=== PATIENT | male | born 2000 ===

== ENCOUNTER 2020-08-07 14:36 | Emergency (ER) | payer BC, SELFPAY ==
[2020-08-07 14:38] VITALS: BP 140/74; PULSE 82; RESP 16; TEMP 36.6; O2SAT 100; BMI 22.8
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
--- NOTE | 2020-08-07 16:27 | PC.NURSE ---
seen by provider. cleared for dc w/o interventions
== END 2020-08-07 16:28 | disposition home or self-care (01) ==
PROVIDERS: Emergency Provider Emergency Medicine
DX: S40.012A Contusion of left shoulder, initial encounter (principal); M25.512 Pain in left shoulder; V43.52XA Car driver injured in collision with other type car in traffic accident, initial encounter; Y93.9 Activity, unspecified; Y92.410 Unspecified street and highway as the place of occurrence of the external cause; Y99.9 Unspecified external cause status; Z79.899 Other long term (current) drug therapy
CPT/HCPCS: 73030; 99283

== ENCOUNTER 2020-11-23 14:14 | Outpatient (REF) | payer BC, SELFPAY | END 2020-11-23 14:15 | disposition home or self-care (01) | LOC: HO.LAB 14:14 | PROVIDERS: Visit Provider Internal Medicine | DX: Z20.822 Contact with and (suspected) exposure to COVID-19 (principal) | CPT/HCPCS: 36415; C9803; U0003; U0005 ==

== ENCOUNTER 2022-08-18 15:51 | Emergency (ER) | payer BC, SELFPAY ==
[2022-08-18 16:47] VITALS: BP 126/67; PULSE 90; RESP 18; TEMP 36.2; O2SAT 99; BMI 23.6
--- NOTE | 2022-08-18 16:47 | ED.EYEPROB ---
HPI - Eye Problem General Chief complaint: General Medical Stated complaint: Swollen Eye Time Seen by Provider: 08/18/22 16:50 Source: patient Mode of arrival: ambulatory Limitations: no limitations History of Present Illness HPI Narrative: 21-year-old male presenting to the ER with complaints of redness/swelling to the right eyelid that started on Monday worse today. Denies any injury to this area thoughts of foreign bodies or any other symptoms complaints or concerns at this time. chief complaint: other (Eyelid swelling) Onset (ago): day(s) (3) Onset description: gradual Duration: constant Location: right eye Eye Symptoms: redness, pain and itching Place: home Mechanism: none Severity: mild If Pain, Quality: aching Associated symptoms: none Treatments Prior to Arrival: none Related Data Patient tetanus UTD: Yes Previous Rx's Medication Instructions Recorded cyclobenzaprine 10 mg tablet 10 mg PO TID PRN muscle spasm #10 08/07/20 tabs ibuprofen 600 mg tablet 600 mg PO Q8H PRN pain #20 tabs 08/07/20 lidocaine 5 % topical patch 1 patch topical DAILY #15 ea 08/07/20 (Lidoderm) doxycycline monohydrate 100 mg 100 mg PO BID 10 days #20 caps 08/18/22 capsule erythromycin 5 mg/gram (0.5 %) eye 0.5 inch ophthalmic (eye) QID 08/18/22 ointment Blepharitis 7 days #3.5 grams Allergies Allergy/AdvReac Type Severity Reaction Status Date / Time No Known Allergies Allergy Unverified 05/21/20 17:36 Review of Systems Review of Systems: Constitutional : No fevers, no chills, No changes in activity, No lethargy, No recent prior head injury, No agitation, No increased fussiness ENT/Mouth : No Ear Pain, No Nasal discharge/drainage Eyes: No Vision changes/blurry/decreased vision, No Eye Pain, No Swelling, + eyelid Redness, No Foreign Body, No Photophobia, no discharge, no drainage, + itching, + eyelid edema, no contact lens uses, no recent welding, no bleeding Cardiovascular : No Chest Pain, No SOB Respiratory : No Cough Gastrointestinal : No Nausea, No Vomiting, No abdominal Pain Genitourinary : No Dysuria, No Urinary Frequency, No Urinary Incontinence, No Urgency, No Flank Pain Musculoskeletal : No joint pain, No neck stiffness, No back pain/injury Skin : No lacerations Neuro : No unsteady gait, No Paresthesias, No Loss of Consciousness, No altered mental status, No dizziness, No Headache Denies past medical history of HIV, recent trauma, coagulopathy, recent spinal/ epidural procedure, new medication, URI symptoms, close contacts with similar symptoms, tick bite, or known CO2 exposure. Yes all other systems are reviewed and are negative PMFSH Past Medical History Attestation statement: The following information was validated with the patient. Source: old records reviewed and nursing notes reviewed Medical History No known health problems Physical Exam Vital Signs: Vital Signs: Last Vital Signs Temp 97.1 F 08/18/22 16:47 Pulse 90 08/18/22 16:47 Resp 18 08/18/22 16:47 BP 126/67 08/18/22 16:47 Pulse Ox 99 08/18/22 16:47 O2 Del Method 08/18/22 16:47 BMI result Body Mass Index 23.6 Vital signs reviewed. Blood pressure normal. Pulse normal. Respiration normal. Oxygen normal. Temperature normal. Appearance: Alert. Oriented X3. No acute distress. Head: Normal external exam. Normocephalic. Atraumatic. Eyes: PERRLA. EOMI. Conjunctiva and sclera normal. Left eyelid within normal limits. Right eyelid appears to have a possible stye although does not have a head and is not ready to be drained at this time. Consistent with blepharitis. Not consistent with orbital cellulitis. ENT: EAC normal. TM's Normal. Pharynx normal. Uvula midline. Moist mucous membranes. No lesions/ulcerations or masses noted on the tongue. Normal voice. No trismus noted. No drooling noted. No muffled voice noted. Neck: Normal inspection. Neck supple. FROM. No adenopathy. Thyroid Normal. No meningeal signs. CVS: Normal heart rate and rhythm. Heart sound normal. Pulses normal throughout. No murmurs/rales/gallops. Respiratory: No respiratory distress. Painless inspiration. Breath sounds normal. No wheezes/rales/rhonchi noted. Chest nontender. No accessory muscle usage noted or decreased air movement noted. Abdomen: Soft and nontender. Back: Full range of motion noted. Nontender. Skin: Skin warm and dry. Normal skin color. Normal skin turgor. No rashes/lesions/lacerations noted. Extremities: Extremities exhibit normal range of motion and nontender. Neuro: Oriented X 3. No motor deficit. No sensory deficit. Reflexes normal. Normal steady gait. No focal neuro deficits noted. CN's II-XII intact bilaterally? Vascular: + radial pulses. Normal cap refill. No cyanosis noted to upper extremity nails Course Course Course Narrative: Will DC home with antibiotics and instructions to return if any new or worsening symptoms follow up with primary care provider. Patient understands agrees with this plan. Discharge Plan Discharge Clinical Impression: Hordeolum externum (stye), Blepharitis Patient Disposition: Home, Self-Care Instructions: Stdiane (ED), Blepharitis (ED) Prescriptions: New erythromycin 5 mg/gram (0.5 %) ointment 0.5 inch ophthalmic (eye) QID 7 Days Qty: 3.5 0RF doxycycline monohydrate 100 mg capsule 100 mg PO BID 10 Days Qty: 20 0RF No Action cyclobenzaprine 10 mg tablet 10 mg PO TID PRN (Reason: muscle spasm) Qty: 10 0RF lidocaine [Lidoderm] 5 % adhesive patch,medicated 1 patch topical DAILY Qty: 15 0RF Rx Instructions: leave on most painful area for up to 12 hrs ibuprofen 600 mg tablet 600 mg PO Q8H PRN (Reason: pain) Qty: 20 0RF Referrals: Physician,Unknown J [Primary Care Provider] - (your pcp as needed ) Stand Alone Forms: Work/School Release Interventions: ED Discharge Assessment Last Done: 08/18/22 16:53
== END 2022-08-18 16:56 | disposition home or self-care (01) ==
LOC: HO.ED 16:55
PROVIDERS: Emergency Provider Internal Medicine
DX: H00.013 Hordeolum externum right eye, unspecified eyelid (principal); H01.006 Unspecified blepharitis left eye, unspecified eyelid; Z79.899 Other long term (current) drug therapy
CPT/HCPCS: 99282; 99283

== ENCOUNTER 2024-02-05 12:50 | Outpatient (AMB) | payer BC, SELFPAY ==
--- NOTE | 2024-02-05 13:00 | A.OFFPC_ITS ---
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 Pt has not have a PCP in over 10 years. 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 Patient has not seen a PCP in over 10 years. In general he is a healthy young man. He reports having herpes simplex infection several months ago and was treated. He would like to do STD screening again. 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 1. Little interest or pleasure in doing things: not at all 2. Feeling down, depressed, or hopeless: not at all 3. Trouble falling or staying asleep, or sleeping too much: not at all 4. Feeling tired or having little energy: not at all 5. Poor appetite or overeating: not at all 6. Feeling bad about yourself - or that you are a failure or have let yourself or your family down: not at all 7. Trouble concentrating on things, such as reading the newspaper or watching television: not at all 8. Moving or speaking so slowly that other people could have noticed. Or the opposite - being so fidgety or restless that you have been moving around a lot more than usual: not at all 9. Thoughts that you would be better off or of hurting yourself in some way: not at all Total score: 0 Depression Screening Interpretation: Negative Depression Screening Done: Yes 35320 - PHQ-9 Billing: Yes Source: Developed by Drs. Ángel Eisenberg, Shira Smith, Jeremiah Diamond and colleagues, with an educational kiesha from [employer]. Thrive Questionnaire Date Thrive assessed: 02/05/24 I am a: Patient What is your living situation today?: I have a steady place to live Within the past 12 months, did the food you bought not last and you didn't have the money to get more?: Never true Within the past 12 months, did you worry whether your food would run out before you got money to buy more?: Never true Do you have trouble paying for medicines?: No Do you have trouble getting transportation to medical appointments?: No Do you have trouble paying your heating and electricity bill?: No Do you have trouble taking care of your child, family member or friend?: No Do you have trouble with day-to-day activities such as bathing, preparing meals, shopping, managing finances, etc.?: No Are you currently unemployed and looking for a job?: No Are you interested in more education?: No Please select the resources that you would like help with: None Currently or been in a relationship where the following occur: no concerns reported THRIVE Score: 0 AUDIT C Alcohol Use Questionnaire (AUDIT-C) 1. How often do you have a drink containing alcohol?: Monthly or less 2. How many drinks containing alcohol do you have on a typical day when you are drinking?: 1 or 2 3. How often do you have six or more drinks on one occasion?: Never Total Score: 1 EARLE-7 AMB Questionnaire EARLE-7 Date EARLE - 7 assessed: 02/05/24 Feeling nervous, anxious, or on edge: 0 = Not at all Not being able to stop or control worryin = Not at all Worrying too much about different things: 0 = Not at all Trouble relaxin = Not at all Being so restless that it is hard to sit still: 0 = Not at all Becoming easily annoyed or irritable: 0 = Not at all Feeling afraid as if something awful might happen: 0 = Not at all Total EARLE-7 score (0-4 normal; 5-9 mild; 10-14 moderate; 15-21 severe): 0 Source: Developed by Drs. Ángel Eisenberg, Shira Smith, Jeremiah Diamond and colleagues, with an educational kiesha from [employer]. EARLE-7 Assessment Billing EARLE-7 Assessment Tool: EARLE-7 Assessment 05395 Review of Systems Const Denies headache(s) Eyes Denies loss of vision ENT Denies vertigo, Denies dizziness, Denies headache(s) and Denies sore throat Card Denies chest pain, Denies leg edema and Denies lightheadedness Resp Denies cough, Denies hemoptysis and Denies wheezing GI Denies abdominal pain, Denies melena, Denies constipation, Denies diarrhea and Denies vomiting Denies dysuria, Denies urinary frequency and Denies urinary urgency Musc Denies arthralgias, Denies joint swelling, Denies numbness and Denies tingling Neuro Denies Abnormal speech present, Denies behavioral changes, Denies vertigo, Denies dizziness, Denies headache(s), Denies loss of vision, Denies memory loss, Denies numbness and Denies tingling Psych Denies anxiety, Denies behavioral changes, Denies depression, Denies memory loss and Denies panic attacks Kali/Lymph Denies easy bleeding and Denies easy bruising Aller/Immun Denies wheezing Physical exam (Primary Care) Vital Signs: Last Vital Signs Pulse 92 02/05/24 13:01 BP 138/72 02/05/24 13:01 Pulse Ox 99 02/05/24 13:01 Oxygen Delivery Method Room Air 02/05/24 13:01 BMI result Body Mass Index 22.1 PHQ-9: PHQ-9 Score PHQ-9: Total score 0 02/05/24 13:08 Depression Screening Interpretation: Negative Thrive Assessment: Date of Thrive Assessment Date Thrive assessed 02/05/24 02/05/24 13:08 Currently or been in a relationship where the following occur: no concerns reported Const General: healthy appearing, no acute distress, alert and awake Nutritional Appearance: well nourished Orientation/consciousness: oriented to person, oriented to place and oriented to time HENMT Ears: TM's normal bilaterally General nose exam: Normal nasal mucous membranes and turbinates present Eyes Conjunctivae: conjunctivae normal Sclerae: sclerae normal Pupils: Equal, round and reactive pupils present Neck Neck: Yes no lymphadenopathy and Yes no JVD Thyroid: Thyroid normal Carotids: no bruits Resp Effort & Inspection: normal respiratory effort and not tachypneic Auscultation: no crackles, no rales, no rhonchi and no wheezes Cardio Rate: regular rate Rhythm: regular rhythm Heart sounds: no murmurs and normal S1 and S2 GI Palpation (GI): Soft to palpation, nontender, no hepatomegaly and no splenomegaly Auscultation: normal bowel sounds Skin General skin exam: no rashes or lesions noted and dry skin Neuro General: oriented to person, oriented to place and oriented to time Cranial nerves: Yes Equal, round and reactive pupils present Speech: No Abnormal speech present Gait exam (Neuro): Normal gait present Motor exam (neuro): no tremor noted Extrem Right upper extremity: full ROM Left upper extremity: full ROM Right lower extremity: full ROM; no edema Left lower extremity: full ROM; no edema Psych Mental Status: mental status grossly normal Speech and movement: Normal speech and movement present Affect: normal affect Attitude: cooperative Thought process: Normal thought process present Assessment and Plan Assessment & Plan (1) Encounter for screening examination for sexually transmitted disease: Code(s): Z11.3 - Encounter for screening for infections with a predominantly sexual mode of transmission Plan: 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 He would like to be screened again for STDs (2) Screening for diabetes mellitus (DM): Code(s): Z13.1 - Encounter for screening for diabetes mellitus Orders: Orders Syphilis Screen Today Z11.3 - Encounter for screening for infections with a predominantly sexual mode of transmission HIV Ab/Ag Today Z11.3 - Encounter for screening for infections with a predominantly sexual mode of transmission CT NG by PCR Today Z11.3 - Encounter for screening for infections with a predominantly sexual mode of transmission, Z20.2 - Contact with and (suspected) exposure to infections with a predominantly sexual mode of transmission Hepatitis B,C Profile Today Z11.3 - Encounter for screening for infections with a predominantly sexual mode of transmission Comprehensive [place]. Panel Fast Today Z13.1 - Encounter for screening for diabetes mellitus Medications: Discontinued cyclobenzaprine Discontinued Reason: Doctor's Order 10 mg PO TID PRN 10 tabs 0RF muscle spasm ibuprofen Discontinued Reason: Doctor's Order 600 mg PO Q8H PRN 20 tabs 0RF pain lidocaine 5% (Lidoderm) leave on most painful area for up to 12 hrs Discontinued Reason: Doctor's Order 1 patch topical DAILY 15 ea 0RF erythromycin Discontinued Reason: Doctor's Order 0.5 inches ophthalmic (eye) QID 7 days 3.5 grams 0RF Blepharitis doxycycline monohydrate Discontinued Reason: Doctor's Order 100 mg PO BID 10 days 20 caps 0RF Coding Level of Care Code New Pt Level 4 (40952) Diagnoses Encounter for screening examination for sexually transmitted disease Z11.3 Screening for diabetes mellitus (DM) Z13.1 Additional Codes EARLE-7 Assessment Billing - EARLE-7 Assessment Tool: EARLE-7 Assessment 84098 ([id number])
[2024-02-05 13:01] VITALS: BP 138/72; PULSE 92; O2SAT 99; BMI 22.1
== END 2024-02-05 13:28 | disposition home or self-care (01) ==
PROVIDERS: PCP Physician Assistant; Visit Provider Physician Assistant
DX: Z11.3 Encounter for screening for infections with a predominantly sexual mode of transmission (principal); Z13.1 Encounter for screening for diabetes mellitus
CPT/HCPCS: 99204

== ENCOUNTER 2024-08-06 10:25 | Outpatient (AMB) | payer BC, SELFPAY ==
--- NOTE | 2024-08-06 10:30 | MHC.PC.OV ---
Vital Signs 08/06/24 10:42 Height 5 ft 8.5 in Weight 148 lb 8 oz BMI 22.2 BP 104/74 Blood Pressure Location Lt brachial Position Sitting Pulse 74 Pulse Source Pulse Oximeter Pulse Oximetry (%) 100 Oxygen Delivery Method Room Air Intake Visit Reasons: ANNUAL Intake Note: Patient is here today for a physical. 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 Required: No Accompanied by: Self / Same As Patient Allergies No Known Allergies Allergy (Verified 08/06/24 10:51) Medication List - Last Reconciled 08/06/24 by Raghu Wren PA-C acyclovir 5% 1 appl topical 6XD 7 days valacyclovir (Valtrex) 1,000 mg PO Q8H 7 days Tobacco use date assessed: 08/06/24 Dental Screening Dental Screen Date: 08/06/24 Did you have a dental visit in the last 12 months?: Yes Did you have a dental problem in the last 6 months where you did not have access to dental care?: No Was dental information given to patient?: Patient has dentist HPI ANNUAL HPI Details Patient is a 23 year male here today for annual physical. Patient has no significant past medical history. Concern--> reports having a small subcutaneous mass behind his left knee over the last several years. He is interested in having it removed. Vaccines: Need Tdap though declines today, declines flu vaccine. 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 1. Little interest or pleasure in doing things: not at all 2. Feeling down, depressed, or hopeless: not at all 3. Trouble falling or staying asleep, or sleeping too much: not at all 4. Feeling tired or having little energy: not at all 5. Poor appetite or overeating: not at all 6. Feeling bad about yourself - or that you are a failure or have let yourself or your family down: not at all 7. Trouble concentrating on things, such as reading the newspaper or watching television: not at all 8. Moving or speaking so slowly that other people could have noticed. Or the opposite - being so fidgety or restless that you have been moving around a lot more than usual: not at all 9. Thoughts that you would be better off or of hurting yourself in some way: not at all Total score: 0 Depression Screening Interpretation: Negative Depression Screening Done: Yes 34636 - PHQ-9 Billing: Yes Source: Developed by Drs. Ángel Eisenberg, Shira Smith, Jeremiah Diamond and colleagues, with an educational kiesha from [employer]. Thrive Questionnaire Date Thrive assessed: 08/06/24 I am a: Patient What is your living situation today?: I have a steady place to live Within the past 12 months, did the food you bought not last and you didn't have the money to get more?: I choose not to answer this question Within the past 12 months, did you worry whether your food would run out before you got money to buy more?: I choose not to answer this question Do you have trouble paying for medicines?: I choose not to answer this question Do you have trouble getting transportation to medical appointments?: I choose not to answer this question Do you have trouble paying your heating and electricity bill?: I choose not to answer this question Do you have trouble taking care of your child, family member or friend?: I choose not to answer this question Do you have trouble with day-to-day activities such as bathing, preparing meals, shopping, managing finances, etc.?: I choose not to answer this question Are you currently unemployed and looking for a job?: I choose not to answer this question Are you interested in more education?: I choose not to answer this question Please select the resources that you would like help with: None Currently or been in a relationship where the following occur: No concerns reported THRIVE Score: 0 AUDIT C Alcohol Use Questionnaire (AUDIT-C) 1. How often do you have a drink containing alcohol?: Never 3. How often do you have six or more drinks on one occasion?: Never Total Score: 0 EARLE-7 AMB Questionnaire EARLE-7 Date EARLE - 7 assessed: 08/06/24 Feeling nervous, anxious, or on edge: 2 = More than half the days Not being able to stop or control worryin = Several days Worrying too much about different things: 1 = Several days Trouble relaxin = Several days Being so restless that it is hard to sit still: 1 = Several days Becoming easily annoyed or irritable: 1 = Several days Feeling afraid as if something awful might happen: 0 = Not at all Total EARLE-7 score (0-4 normal; 5-9 mild; 10-14 moderate; 15-21 severe): 7 Source: Developed by Drs. Ángel Eisenberg, Shira Smith, Jeremiah Diamond and colleagues, with an educational kiesha from [employer]. EARLE-7 Assessment Billing EARLE-7 Assessment Tool: EARLE-7 Assessment 51924 Review of Systems Const Denies body aches, Denies chills, Denies excessive sweating, Denies fatigue, Denies fever(s) and Denies headache(s) Eyes Denies blurry vision ENT Denies dysphagia, Denies vertigo, Denies dizziness, Denies headache(s), Denies hearing loss and Denies tinnitus Card Denies chest pain, Denies chest pain with activity, Denies syncope, Denies irregular heart rhythm and Denies dyspnea Resp Denies chest congestion, Denies cough, Denies hemoptysis, Denies dyspnea and Denies wheezing GI Denies abdominal pain, Denies melena, Denies hematochezia, Denies coffee ground emesis, Denies dysphagia, Denies diarrhea, Denies nausea and Denies vomiting Denies difficulty urinating, Denies dysuria, Denies urinary frequency, Denies urinary hesitancy and Denies urinary urgency Musc Denies arthralgias, Denies limited range of motion, Denies muscle cramps and Denies muscle weakness Skin/Breast Denies rash and Denies skin ulcer Neuro Denies Abnormal speech present, Denies confusion, Denies vertigo, Denies dizziness, Denies syncope, Denies headache(s), Denies memory loss and Denies seizure-like activity Psych Denies anxiety, Denies confusion, Denies depression, Denies memory loss, Denies panic attacks and Denies paranoia Endo Denies excessive sweating, Denies fatigue, Denies flushing, Denies polydipsia and Denies polyuria Aller/Immun Denies wheezing Physical exam (Primary Care) Vital Signs: Last Vital Signs Pulse 74 08/06/24 10:42 BP 104/74 08/06/24 10:42 Pulse Ox 100 08/06/24 10:42 Oxygen Delivery Method Room Air 08/06/24 10:42 BMI result Body Mass Index 22.2 Tobacco/Smoking Status: Tobacco use Status Tobacco use date assessed 08/06/24 08/06/24 10:42 Patient Tobacco Use Status Never used Tobacco 08/06/24 10:31 e-Cigarette/Vaping Use Never Used 08/06/24 10:42 PHQ-9: PHQ-9 Score PHQ-9: Total score 0 08/06/24 10:42 Depression Screening Interpretation: Negative Thrive Assessment: Date of Thrive Assessment Date Thrive assessed 08/06/24 08/06/24 10:42 Currently or been in a relationship where the following occur: No concerns reported Const General: cooperative, comfortable, no acute distress, alert and awake; No confusion Orientation/consciousness: oriented to person, oriented to place, patient oriented x3 and No confusion HENMT Head: Yes normocephalic Ears: external ears normal and TM's normal bilaterally Face and sinus: No sinus tenderness Mouth: Normal oral and palatal mucosa present and tongue normal Teeth and gingiva: dentition normal and gingiva normal Throat: Yes posterior oropharynx normal, Yes tonsils normal and Yes uvula midline Eyes Conjunctivae: conjunctivae normal Sclerae: sclerae normal Pupils: Equal, round and reactive pupils present EOM: EOMs intact bilaterally Direct Ophthalmoscopy: No no photophobia Neck Neck: Yes no lymphadenopathy, No tender and Yes no JVD Thyroid: Thyroid normal Carotids: no bruits Chest Chest palpation & inspection: no tenderness Resp Effort & Inspection: normal respiratory effort, no audible wheezes, not labored and no stridor Auscultation: no crackles, no rales, no rhonchi and no wheezes Cardio Jugular venous distension: no JVD Rate: regular rate, not bradycardic and not tachycardic Rhythm: regular rhythm Bruits: no carotid bruits Peripheral pulses: Peripheral pulses 2+ throughout GI Inspection: Yes normal to inspection, No abdominal wall ecchymosis and No visible herniation Palpation (GI): Soft to palpation, nontender, no guarding, not rigid and No hepatosplenomegaly present Auscultation: normoactive bowel sounds General: Yes no CVA tenderness Back/Spine/Pelvis Back: no CVA tenderness and No back tenderness Cervical Spine: cervical ROM normal Thoracic/Lumbar Spine: thoracic and lumbar spine normal to inspection, straight leg raise negative bilaterally, No thoraco-lumbar ROM limited and No lumbar spinal tenderness Skin Lesions: no lesions Rashes: no rashes Wounds: no wounds Neuro General: oriented to person, oriented to place, patient oriented x3, CN's II-XI intact bilaterally and No confusion Cranial nerves: Yes Equal, round and reactive pupils present and Yes Normal accommodation reflex present Cognition (Neuro): normal cognition Speech: No Abnormal speech present Gait exam (Neuro): Normal gait present Motor exam (neuro): 5/5 motor strength present throughout Extrem Right upper extremity: full ROM; no cyanosis Left upper extremity: full ROM; no cyanosis Right lower extremity: no edema Left lower extremity: no edema Upper/lower leg/hip images: 1. SMALL MOBILE PALPABLE CYSTIC LIKE MASS IN THE AREA OUTLINED Psych Appearance: grossly normal Mental Status: mental status grossly normal Affect: normal affect Attitude: cooperative Thought process: Normal thought process present Office Procedures Flu Questionnaire Does the patient have a severe egg allergy?: No Immunizations Fluarix Triv [id number] (PF) 45 mcg (15 mcg x 3)/0.5 mL IM syringe Performing Provider: Raghu Wren PA-C [place] [facility] [place] [facility] Documented (not given) by: VIMAL Rogers on 08/06/24 10:43 Reason Not Given: Patient Refused Coding Level of Care Code Est Pt Prev Care 18-39y(64893) Diagnoses Annual physical exam Z00.00 Subcutaneous cyst L72.9 EARLE (generalized anxiety disorder) F41.1 Additional Codes EARLE-7 Assessment Billing - EARLE-7 Assessment Tool: EARLE-7 Assessment 97069 ([id number]) PHQ-9 - 84700 - PHQ-9 Billing: Yes ([id number]) Assessment & Plan Assessment & Plan (1) Annual physical exam: Code(s): Z00.00 - Encounter for general adult medical examination without abnormal findings Category: Medical Plan: As per HPI (2) Subcutaneous cyst: Code(s): L72.9 - Follicular cyst of the skin and subcutaneous tissue, unspecified Category: Medical Plan: Has noted a small subcutaneous cystic like mass behind his left knee for many years now. Will like to see a general surgeon for removal. (3) EARLE (generalized anxiety disorder): Code(s): F41.1 - Generalized anxiety disorder Category: Medical Plan: Patient's EARLE-7 score positive for anxiety which has been an existing condition for him. Not interested in therapy mental health medication at this time. Orders: Orders Influenza [id number] Immunization Today Z23 - Encounter for immunization
[2024-08-06 10:42] VITALS: BP 104/74; PULSE 74; O2SAT 100; BMI 22.2
== END 2024-08-06 11:02 | disposition home or self-care (01) ==
PROVIDERS: PCP Physician Assistant; Visit Provider Physician Assistant
DX: Z00.00 Encounter for general adult medical examination without abnormal findings (principal); L72.9 Follicular cyst of the skin and subcutaneous tissue, unspecified; F41.1 Generalized anxiety disorder; Z23 Encounter for immunization

== ENCOUNTER → 2024-08-06 10:25 | Outpatient (BNVA) | payer BC, SELFPAY | PROVIDERS: PCP Physician Assistant; Visit Provider Physician Assistant | DX: Z00.00 Encounter for general adult medical examination without abnormal findings (principal); L72.9 Follicular cyst of the skin and subcutaneous tissue, unspecified; F41.1 Generalized anxiety disorder; Z28.21 Immunization not carried out because of patient refusal | CPT/HCPCS: 90471; 96127 ==

== ENCOUNTER 2025-03-25 12:12 | Outpatient (REF) | payer BC, SELFPAY ==
[2025-03-25 14:03] LABS: HIV Num 1 0.05 S/CO (0.00-0.99)
[2025-03-25 14:05] LABS: Syphilis Screen Nonreactive (Nonreactive)
[2025-03-25 14:14] LABS: CT PCR Urine NOT DETECTED (Not Detect.); NG PCR Urine NOT DETECTED (Not Detect.)
== END 2025-03-25 12:13 | disposition home or self-care (01) ==
LOC: HO.LAB 12:12
PROVIDERS: PCP Physician Assistant; Visit Provider Physician Assistant
DX: Z11.3 Encounter for screening for infections with a predominantly sexual mode of transmission (principal)
CPT/HCPCS: 36415; 86780; 87389; 87491; 87591

== ENCOUNTER 2025-06-13 12:39 | Outpatient (REF) | payer BC, SELFPAY ==
[2025-06-13 15:10] LABS: CT PCR Urine DETECTED (Not Detect.); NG PCR Urine NOT DETECTED (Not Detect.)
[2025-06-14 08:24] LABS: Syphilis Screen Nonreactive (Nonreactive)
[2025-06-14 08:29] LABS: HIV Num 1 0.05 S/CO (0.00-0.99)
== END 2025-06-13 12:40 | disposition home or self-care (01) ==
LOC: HO.LAB 12:39
PROVIDERS: PCP Physician Assistant; Visit Provider Physician Assistant
DX: Z20.2 Contact with and (suspected) exposure to infections with a predominantly sexual mode of transmission (principal); Z11.4 Encounter for screening for human immunodeficiency virus [HIV]
CPT/HCPCS: 86780; 87389; 87491; 87591

== ENCOUNTER 2025-08-11 10:00 | Outpatient (AMB) | payer BC, SELFPAY ==
[2025-08-11 10:04] VITALS: BP 128/80; PULSE 69; O2SAT 99; BMI 23.2
--- NOTE | 2025-08-11 10:04 | MHC.PC.OV ---
Vital Signs 08/11/25 10:04 Height 5 ft 8.5 in Weight 155 lb BMI 23.2 BP 128/80 Blood Pressure Location Lt brachial Position Sitting Pulse 69 Pulse Source Pulse Oximeter Pulse Oximetry (%) 99 Oxygen Delivery Method Room Air Intake Visit Reasons: Annual exam Allergies No Known Allergies Allergy (Verified 08/11/25 10:17) Medication List - Last Reconciled 08/11/25 by Raghu Wren PA-C No Known Home Meds Tobacco use date assessed: 08/11/25 Dental Screening Dental Screen Date: 08/11/25 Did you have a dental visit in the last 12 months?: Yes Did you have a dental problem in the last 6 months where you did not have access to dental care?: No Was dental information given to patient?: Patient has dentist HPI Annual exam HPI Details Patient is a 24 year male here today for annual physical. Patient has no significant past medical history. Concern--> The patient reports a history of chlamydia, for which he received treatment. He also has a history of gonorrhea, which initially resulted in a negative test despite his partner testing positive; it was suggested this may have been due to testing too soon after exposure. The patient has a male partner who may not be monogamous. Vaccines: Need Tdap though declines today, declines flu vaccine. 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 1. Little interest or pleasure in doing things: not at all 2. Feeling down, depressed, or hopeless: not at all 3. Trouble falling or staying asleep, or sleeping too much: not at all 4. Feeling tired or having little energy: not at all 5. Poor appetite or overeating: not at all 6. Feeling bad about yourself - or that you are a failure or have let yourself or your family down: not at all 7. Trouble concentrating on things, such as reading the newspaper or watching television: not at all 8. Moving or speaking so slowly that other people could have noticed. Or the opposite - being so fidgety or restless that you have been moving around a lot more than usual: not at all 9. Thoughts that you would be better off or of hurting yourself in some way: not at all Total score: 0 Depression Screening Interpretation: Negative Depression Screening Done: Yes 03701 - PHQ-9 Billing: Patient declined-do not bill Source: Developed by Drs. Ángel Eisenberg, Shira Smith, Jeremiah Diamond and colleagues, with an educational kiesha from [employer]. Thrive Questionnaire Date Thrive assessed: 08/11/25 I am a: Patient What is your living situation today?: I have a steady place to live Within the past 12 months, did the food you bought not last and you didn't have the money to get more?: I choose not to answer this question Within the past 12 months, did you worry whether your food would run out before you got money to buy more?: I choose not to answer this question Do you have trouble paying for medicines?: I choose not to answer this question Do you have trouble getting transportation to medical appointments?: No Do you have trouble paying your heating and electricity bill?: I choose not to answer this question Do you have trouble taking care of your child, family member or friend?: No Do you have trouble with day-to-day activities such as bathing, preparing meals, shopping, managing finances, etc.?: No Are you currently unemployed and looking for a job?: No Are you interested in more education?: I choose not to answer this question Currently or been in a relationship where the following occur: No concerns reported THRIVE Score: 0 AUDIT C Alcohol Use Questionnaire (AUDIT-C) 1. How often do you have a drink containing alcohol?: Never 3. How often do you have six or more drinks on one occasion?: Never Total Score: 0 EARLE-7 AMB Questionnaire EARLE-7 Date EARLE - 7 assessed: 08/11/25 Feeling nervous, anxious, or on edge: 1 = Several days Not being able to stop or control worryin = Several days Worrying too much about different things: 1 = Several days Trouble relaxin = Several days Being so restless that it is hard to sit still: 1 = Several days Becoming easily annoyed or irritable: 1 = Several days Feeling afraid as if something awful might happen: 1 = Several days Total EARLE-7 score (0-4 normal; 5-9 mild; 10-14 moderate; 15-21 severe): 7 Source: Developed by Drs. Ángel Eisenberg, Shira Smith, Jeremiah Diamond and colleagues, with an educational kiesha from [employer]. EARLE-7 Assessment Billing EARLE-7 Assessment Tool: EARLE-7 Assessment 28562 Review of Systems Const Denies body aches, Denies chills, Denies excessive sweating, Denies fatigue, Denies fever(s) and Denies headache(s) Eyes Denies blurry vision ENT Denies dysphagia, Denies vertigo, Denies dizziness, Denies headache(s), Denies hearing loss and Denies tinnitus Card Denies chest pain, Denies chest pain with activity, Denies syncope, Denies irregular heart rhythm and Denies dyspnea Resp Denies chest congestion, Denies cough, Denies hemoptysis, Denies dyspnea and Denies wheezing GI Denies abdominal pain, Denies melena, Denies hematochezia, Denies coffee ground emesis, Denies dysphagia, Denies diarrhea, Denies nausea and Denies vomiting Denies difficulty urinating, Denies dysuria, Denies urinary frequency, Denies urinary hesitancy and Denies urinary urgency Musc Denies arthralgias, Denies limited range of motion, Denies muscle cramps and Denies muscle weakness Skin/Breast Denies rash and Denies skin ulcer Neuro Denies Abnormal speech present, Denies confusion, Denies vertigo, Denies dizziness, Denies syncope, Denies headache(s), Denies memory loss and Denies seizure-like activity Psych Denies anxiety, Denies confusion, Denies depression, Denies memory loss, Denies panic attacks and Denies paranoia Endo Denies excessive sweating, Denies fatigue, Denies flushing, Denies polydipsia and Denies polyuria Aller/Immun Denies wheezing Physical exam (Primary Care) Vital Signs: Last Vital Signs Pulse 69 08/11/25 10:04 BP 128/80 08/11/25 10:04 Pulse Ox 99 08/11/25 10:04 Oxygen Delivery Method Room Air 08/11/25 10:04 BMI result Body Mass Index 23.2 Tobacco/Smoking Status: Tobacco use Status Tobacco use date assessed 08/11/25 08/11/25 10:10 Patient Tobacco Use Status Never used Tobacco 08/11/25 10:10 Tobacco use type Cigarette 08/11/25 10:10 e-Cigarette/Vaping Use Never Used 08/11/25 10:10 PHQ-9: PHQ-9 Score PHQ-9: Total score 0 08/11/25 10:10 Depression Screening Interpretation: Negative Thrive Assessment: Date of Thrive Assessment Date Thrive assessed 08/11/25 08/11/25 10:10 Currently or been in a relationship where the following occur: No concerns reported Const General: cooperative, comfortable, no acute distress, alert and awake; No confusion Orientation/consciousness: oriented to person, oriented to place, patient oriented x3 and No confusion HENMT Head: Yes normocephalic Ears: external ears normal and TM's normal bilaterally Face and sinus: No sinus tenderness Mouth: Normal oral and palatal mucosa present and tongue normal Teeth and gingiva: dentition normal and gingiva normal Throat: Yes posterior oropharynx normal, Yes tonsils normal and Yes uvula midline Eyes Conjunctivae: conjunctivae normal Sclerae: sclerae normal Pupils: Equal, round and reactive pupils present EOM: EOMs intact bilaterally Direct Ophthalmoscopy: No no photophobia Neck Neck: Yes no lymphadenopathy, No tender and Yes no JVD Thyroid: Thyroid normal Carotids: no bruits Chest Chest palpation & inspection: no tenderness Resp Effort & Inspection: normal respiratory effort, no audible wheezes, not labored and no stridor Auscultation: no crackles, no rales, no rhonchi and no wheezes Cardio Jugular venous distension: no JVD Rate: regular rate, not bradycardic and not tachycardic Rhythm: regular rhythm Bruits: no carotid bruits Peripheral pulses: Peripheral pulses 2+ throughout GI Inspection: Yes normal to inspection, No abdominal wall ecchymosis and No visible herniation Palpation (GI): Soft to palpation, nontender, no guarding, not rigid and No hepatosplenomegaly present Auscultation: normoactive bowel sounds General: Yes no CVA tenderness Back/Spine/Pelvis Back: no CVA tenderness and No back tenderness Cervical Spine: cervical ROM normal Thoracic/Lumbar Spine: thoracic and lumbar spine normal to inspection, straight leg raise negative bilaterally, No thoraco-lumbar ROM limited and No lumbar spinal tenderness Skin Lesions: no lesions Rashes: no rashes Wounds: no wounds Neuro General: oriented to person, oriented to place, patient oriented x3, CN's II-XI intact bilaterally and No confusion Cranial nerves: Yes Equal, round and reactive pupils present and Yes Normal accommodation reflex present Cognition (Neuro): normal cognition Speech: No Abnormal speech present Gait exam (Neuro): Normal gait present Motor exam (neuro): 5/5 motor strength present throughout Extrem Right upper extremity: full ROM; no cyanosis Left upper extremity: full ROM; no cyanosis Right lower extremity: no edema Left lower extremity: no edema Psych Appearance: grossly normal Mental Status: mental status grossly normal Affect: normal affect Attitude: cooperative Thought process: Normal thought process present Coding Level of Care Code Est Pt Prev Care 18-39y(12209) Diagnoses Annual physical exam Z00.00 High risk homosexual behavior Z72.52 High risk sexual behavior type: homosexual Additional Codes EARLE-7 Assessment Billing - EARLE-7 Assessment Tool: EARLE-7 Assessment 19072 ([id number]) Assessment & Plan Assessment & Plan (1) Annual physical exam: Code(s): Z00.00 - Encounter for general adult medical examination without abnormal findings Category: Medical Plan: As per HPI (2) High risk sexual behavior: Code(s): Z72.51 - High risk heterosexual behavior Category: Social Hx Qualifiers: High risk sexual behavior type: homosexual Qualified Code(s): Z72.52 - High risk homosexual behavior Plan: A new set of blood work will be ordered to check kidney function, liver function, and a fasting blood sugar. STD screening, including for chlamydia and gonorrhea via urine sample, will also be performed. The patient has been counseled on HIV pre-exposure prophylaxis (PrEP) due to his sexual orientation. He expressed interest in an on-demand regimen for Truvada, and a prescription for 14 tablets will be sent Orders: Orders HIV Ab/Ag Today Z11.3 - Encounter for screening for infections with a predominantly sexual mode of transmission CT NG by PCR Urine Today Z11.3 - Encounter for screening for infections with a predominantly sexual mode of transmission, Z72.52 - High risk homosexual behavior Comprehensive [place]. Panel Fast Today Z13.1 - Encounter for screening for diabetes mellitus Syphilis Screen Today Z11.3 - Encounter for screening for infections with a predominantly sexual mode of transmission Medications: New emtricitabine-tenofovir (TDF) 200-300 mg (Truvada) 1 tab PO DAILY PRN 14 tabs 0RF on demand PREP 14 days Z72.52 - High risk homosexual behavior
== END 2025-08-11 10:32 | disposition home or self-care (01) ==
LOC: HO.HMCH 10:01
PROVIDERS: PCP Physician Assistant; Visit Provider Physician Assistant
DX: Z00.00 Encounter for general adult medical examination without abnormal findings (principal); Z72.52 High risk homosexual behavior

== ENCOUNTER → 2025-08-11 10:00 | Outpatient (BNVA) | payer BC, SELFPAY | PROVIDERS: PCP Physician Assistant; Visit Provider Physician Assistant | DX: Z00.00 Encounter for general adult medical examination without abnormal findings (principal); Z72.52 High risk homosexual behavior | CPT/HCPCS: 96127 ==

== ENCOUNTER 2025-08-15 11:46 | Outpatient (REF) | payer BC, SELFPAY ==
[2025-08-15 14:35] LABS: Alanine Aminotransferase 13 U/L (0-40); Albumin Level 4.7 g/dL (3.5-5.0); Alkaline Phosphatase 42 U/L (39-117); Anion Gap 13 (12-20); Aspartate Amino Transferase 19 U/L (5-37); Blood Urea Nitrogen 14 mg/dL (9-16); Calcium 9.2 mg/dL (8.4-10.2); Carbon Dioxide 28 mmol/L (22-29); Chloride 105 mmol/L (96-108); Estimated Glomerular Filt Rate > 60; Potassium 4.2 mmol/L (3.3-5.1); Sodium 142 mmol/L (135-145); Total Protein 7.3 g/dL (6.5-8.0)
[2025-08-15 15:58] LABS: CT PCR Urine NOT DETECTED (Not Detect.); NG PCR Urine NOT DETECTED (Not Detect.)
[2025-08-16 07:29] LABS: Syphilis Screen Nonreactive (Nonreactive)
[2025-08-16 07:54] LABS: HIV Num 1 0.09 S/CO (0.00-0.99)
== END 2025-08-15 11:47 | disposition home or self-care (01) ==
LOC: HO.LAB 11:46
PROVIDERS: PCP Physician Assistant; Visit Provider Physician Assistant
DX: Z13.1 Encounter for screening for diabetes mellitus (principal); Z72.52 High risk homosexual behavior; Z20.2 Contact with and (suspected) exposure to infections with a predominantly sexual mode of transmission; Z11.4 Encounter for screening for human immunodeficiency virus [HIV]; Z01.84 Encounter for antibody response examination
CPT/HCPCS: 80053; 86780; 87389; 87491; 87591

== ENCOUNTER 2025-08-20 13:24 | Outpatient (REF) | payer BC, SELFPAY ==
--- NOTE | ~2025-08-20 | US_ITS ---
EXAMINATION: Ultrasound left lower extremity CLINICAL INFORMATION: Mass lower extremity, evaluate cystic versus solid COMPARISON: None TECHNIQUE: Ultrasound of the palpable abnormality of the left thigh FINDINGS: In the area of clinical concern in the posterior/medial mid left thigh is evaluated. There is a mass in the subcutaneous soft tissues, with mixed hypoechoic and hyperechoic echotexture. No internal vascularity seen. US/US Extremity Nonvas Limited LT IMPRESSION: Solid mass in the subcutaneous tissues in the area of clinical concern in the posterior/medial midthigh. This is indeterminate on ultrasound. Clinically correlate. Further evaluation with MRI with and without contrast as clinically indicated. Electronically signed by: Cooper Diez MD 08/20/2025 01:53 PM AT[facility]ME[facility]
== END 2025-08-20 13:25 | disposition home or self-care (01) ==
LOC: HO.US 13:24
PROVIDERS: PCP Physician Assistant; Visit Provider Physician Assistant
DX: L72.9 Follicular cyst of the skin and subcutaneous tissue, unspecified (principal)
CPT/HCPCS: 76882

== ENCOUNTER → 2025-08-20 13:27 | Outpatient (BNV) | payer BC, SELFPAY | PROVIDERS: PCP Physician Assistant; Visit Provider Radiology Diagnostic Ultrasound | DX: R22.42 Localized swelling, mass and lump, left lower limb (principal) | CPT/HCPCS: 76882 ==